=== PATIENT | male | born 1995 | race Two or more races ===

== ENCOUNTER 2017-07-04 23:13 | Emergency (ER) | payer SELFPAY ==
[~2017-07-04] VITALS: Ht 170.2 cm; Wt 83.9 kg
[2017-07-04 23:15] VITALS: BP 124/82
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
[2017-07-05 00:04] LABS: BASOPHILS % (AUTO) 1.4 % (0.0-2.0); EOSINOPHILS % (AUTO) 2.6 % (0.0-3.0); LYMPHOCYTES % (AUTO) 32.3 % (20.0-45.0); MEAN CORPUSCULAR HEMOGLOBIN 28.5 PG (27.0-31.0); MEAN CORPUSCULAR HGB CONC 32.3 G/DL (32.0-36.0); MEAN CORPUSCULAR VOLUME 88 FL (80-99); MEAN PLATELET VOLUME 6.8 FL (6.5-10.1); MONOCYTES % (AUTO) 5.7 % (1.0-10.0); NEUTROPHILS % (AUTO) 57.9 % (45.0-75.0); PLATELET COUNT 281 K/UL (150-450); RED BLOOD COUNT 6.07 M/UL (4.70-6.10); RED CELL DISTRIBUTION WIDTH 11.8 % (11.6-14.8); WHITE BLOOD COUNT 7.7 K/UL (4.8-10.8)
[2017-07-05 00:08] LABS: ANION GAP 7 mmol/L (5-15); CALCIUM 9.1 MG/DL (8.5-10.1); CARBON DIOXIDE 30 MMOL/L (21-32); CHLORIDE 106 MMOL/L (98-107); CREATININE 1.3 MG/DL (0.55-1.30); GLOMERULAR FILTRATION RATE > 60 mL/min (>60); SODIUM 143 MMOL/L (136-145)
[2017-07-05 00:12] LABS: ALANINE AMINOTRANSFERASE 50 U/L (12-78); ALBUMIN/GLOBULIN RATIO 1.1 (1.0-2.7); ALCOHOL 226 mg/dL; ASPARTATE AMINO TRANSFERASE 24 U/L (15-37); TOTAL PROTEIN 8.5 G/DL (6.4-8.2)
[2017-07-05 00:16] LABS: ACETAMINOPHEN < 2 MCG/ML (10-30)
[2017-07-05] MEDS ORDERED: ZOFRAN ODT4 MG ORAL (00:47)
[2017-07-05 01:10] VITALS: BP 131/79
[2017-07-05 04:21] VITALS: BP 131/79
== END 2017-07-05 01:10 | disposition home or self-care (01) ==
LOC: EDBD 23:13 → EMR 23:32
DX: F10.129 Alcohol abuse with intoxication, unspecified (principal); F12.10 Cannabis abuse, uncomplicated; R42 Dizziness and giddiness
CPT/HCPCS: 36415; 80053; 80307; 85025; 96374; 99284; G0480; 80329